=== PATIENT | female | born 1985 | race African-American/Black ===

== ENCOUNTER 2024-03-07 16:59 | Inpatient (IN) | payer OTHER ==
[~2024-03-07] VITALS: Ht 162.6 cm; Wt 68.5 kg
[2024-03-07 18:16] LABS: GLUCOMETER DEV NAME(LOC) ERT.5; GLUCOSE,POINT OF CARE 93 MG/DL (70-110)
[2024-03-07 18:44] LABS: BASOPHILS % (AUTO) 0.7 % (0.0-2.0); EOSINOPHILS % (AUTO) 2.8 % (1.0-6.0); HEMATOCRIT 21.9 % (36-46); LYMPHOCYTES # (AUTO) 2.6 K/uL (1.0-4.8); LYMPHOCYTES % (AUTO) 39.5 % (22.0-44.0); MEAN CORPUSCULAR HEMOGLOBIN 13.2 pg (26.0-34.0); MEAN CORPUSCULAR HGB CONC 25.2 G/dL (31.0-37.0); MEAN CORPUSCULAR VOLUME 52 fL (80-100); MONOCYTES # (AUTO) 0.6 K/uL (0.1-1.0); MONOCYTES % (AUTO) 9.2 % (2.0-9.0); NEUTROPHILS # (AUTO) 3.2 K/uL (1.8-7.7); NEUTROPHILS % (AUTO) 47.8 % (40.0-70.0); PLATELET COUNT (AUTO) 124 K/uL (150-450); RED BLOOD CELL COUNT(AUTO) 4.17 MIL/uL (4.00-5.20); RED CELL DISTRIBUTION WIDTH 23.3 % (11.5-14.5); WHITE BLOOD COUNT (AUTO) 6.6 K/uL (4.5-11.0)
[2024-03-07 18:49] LABS: HEMOGLOBIN 5.5 g/dL (12.0-16.0)
[2024-03-07 18:52] LABS: ANION GAP 11 mmol/L (8-16); CALCIUM, TOTAL 8.3 mg/dL (8.8-10.5); CARBON DIOXIDE 23 mmol/L (22-29); CHLORIDE 105 mmol/L (98-107); CREATININE 0.58 mg/dL (0.60-1.30); GLOMERULAR FILTR. RATE CALC > 60 mL/min (>60); GLUCOSE,RANDOM 83 mg/dL (70-110); POTASSIUM 3.9 mmol/L (3.5-5.1); SODIUM SERUM 139 mmol/L (136-145); UREA NITROGEN, BLOOD 8 mg/dL (7-18)
[2024-03-07] MEDS ORDERED: IOHEXOL 350 MG/ML 100 ML VIAL ONE (19:14)
[2024-03-07] MEDS ORDERED: SODIUM CHLORIDE 0.9% 100 ML ONE (19:14)
[2024-03-07 19:23] LABS: TROPONIN I-HIGH SENSITIVITY Less Than 4 ng/L (<51)
[2024-03-07 19:29] LABS: PATHOLOGY REVIEW, DIFF YES; RBC MORPHOLOGY COMMENT ABNORMAL RBC MORPH
[2024-03-07 20:19] LABS: APPEARANCE,URINE CLEAR (CLEAR); BILIRUBIN,URINE NEGATIVE (NEGATIVE); COLOR,URINE COLORLESS (YELLOW); GLUCOSE, URINE (UA) NEGATIVE (NEGATIVE); KETONES,URINE NEGATIVE (NEGATIVE); LEUKOCYTE ESTERASE ,URINE NEGATIVE (NEGATIVE); NITRATE,URINE NEGATIVE (NEGATIVE); OCCULT BLOOD,URINE NEGATIVE (NEGATIVE); PH,URINE 7.5 (5.0-8.0); PROTEIN,URINE TRACE mg/dL (NEGATIVE); SPECIFIC GRAVITIY, URINE 1.014 (1.003-1.030); UROBILINOGEN,URINE <=1.0 mg/dL (<=1.0)
[2024-03-07 20:30] VITALS: BP 124/85; PULSE 87; RESP 16; TEMP 98.5
[2024-03-07 20:45] VITALS: BP 122/68; PULSE 87; RESP 14; TEMP 98
[2024-03-07 21:00] VITALS: BP 115/76; PULSE 79; RESP 13; TEMP 98.6
[2024-03-07 21:15] VITALS: BP 119/70; PULSE 79; RESP 17; TEMP 98.3
[2024-03-07 21:45] VITALS: BP 115/77; PULSE 85; RESP 13; TEMP 98.3
[2024-03-07 22:15] VITALS: BP 119/78; PULSE 19; RESP 19; TEMP 98.3
[2024-03-07] MEDS: MetroNIDAZOLE 250 MG TABLET PO ONE (22:47)
[2024-03-07] MEDS: AZITHROMYCIN 500 MG TABLET PO ONE (22:47)
[2024-03-07] MEDS: CefTRIAXone SODIUM 1 GM/VIAL IM ONE (22:47)
[2024-03-07] MEDS: LIDOCAINE/PF 1% 2 ML VIAL IM ONE (22:49)
[2024-03-08] VITALS (11 sets, daily range): BP systolic 97–119; BP diastolic 47–73; PULSE 70–88; RESP 16–18; TEMP 97.4–99.3
[2024-03-08] MEDS: HEPARIN SODIUM,PORCINE 5,000 UNITS/ML VIAL SQ SCH
[2024-03-08] MEDS ORDERED: MAGNESIUM HYDROXIDE SUSPENSION 30 ML UDCUP PO PRN
[2024-03-08] MEDS ORDERED: MORPHINE SULFATE 2 MG/ML SYRINGE IVP PRN
[2024-03-08] MEDS ORDERED: IPRATROPIUM BROMIDE 0.5 MG/2.5 ML NEB SOLUTION NEB PRN
[2024-03-08] MEDS ORDERED: ALBUTEROL SULFATE 2.5 MG/0.5 ML NEB SOLUTION NEB PRN
[2024-03-08] MEDS ORDERED: BISACODYL 10 MG RECTAL RECTAL SUPPOSITORY PR PRN
[2024-03-08 01:34] LABS: % IRON SATURATION 2.4 % (22-44)
[2024-03-08] MEDS: PANTOPRAZOLE SODIUM 40 MG DR TABLET PO SCH (08:51)
[2024-03-08] MEDS: HYDROCODONE/ACETAMINOPHEN 5-325 MG TABLET PO PRN (08:51)
[2024-03-08 12:05] LABS: EOSINOPHILS % (AUTO) 2.1 % (1.0-6.0); HEMATOCRIT 24.6 % (36-46); LYMPHOCYTES # (AUTO) 2.4 K/uL (1.0-4.8); LYMPHOCYTES % (AUTO) 35.5 % (22.0-44.0); MEAN CORPUSCULAR HEMOGLOBIN 16.3 pg (26.0-34.0); MEAN CORPUSCULAR HGB CONC 28.4 G/dL (31.0-37.0); MEAN CORPUSCULAR VOLUME 57 fL (80-100); MONOCYTES # (AUTO) 0.5 K/uL (0.1-1.0); MONOCYTES % (AUTO) 7.3 % (2.0-9.0); NEUTROPHILS # (AUTO) 3.6 K/uL (1.8-7.7); NEUTROPHILS % (AUTO) 54.1 % (40.0-70.0); PLATELET COUNT (AUTO) 159 K/uL (150-450); RED CELL DISTRIBUTION WIDTH 29.1 % (11.5-14.5); WHITE BLOOD COUNT (AUTO) 6.6 K/uL (4.5-11.0)
[2024-03-08] MEDS ORDERED: ONDANSETRON HCL 4 MG/2 ML VIAL IVP PRN ×2 (14:45)
[2024-03-08] MEDS ORDERED: SODIUM CHLORIDE 0.9% 1,000 ML ONE (14:58)
[2024-03-08] MEDS ORDERED: SODIUM CHLORIDE 0.9% 500 ML IV ONE (18:22)
[2024-03-08] MEDS: SOD FERRIC GLUC COMPLX/SUCROSE 125 MG in SODIUM CHLORIDE 0.9% 100 ML IV SCH (18:50)
[2024-03-08 20:02] LABS: BASOPHILS % (AUTO) 0.3 % (0.0-2.0); EOSINOPHILS % (AUTO) 2.1 % (1.0-6.0); HEMATOCRIT 26.6 % (36-46); HEMOGLOBIN 7.9 g/dL (12.0-16.0); LYMPHOCYTES # (AUTO) 2.7 K/uL (1.0-4.8); LYMPHOCYTES % (AUTO) 32.8 % (22.0-44.0); MEAN CORPUSCULAR HEMOGLOBIN 17.9 pg (26.0-34.0); MEAN CORPUSCULAR HGB CONC 29.8 G/dL (31.0-37.0); MEAN CORPUSCULAR VOLUME 60 fL (80-100); MONOCYTES # (AUTO) 0.6 K/uL (0.1-1.0); NEUTROPHILS # (AUTO) 4.8 K/uL (1.8-7.7); NEUTROPHILS % (AUTO) 57.8 % (40.0-70.0); PLATELET COUNT (AUTO) 127 K/uL (150-450); RED BLOOD CELL COUNT(AUTO) 4.44 MIL/uL (4.00-5.20); RED CELL DISTRIBUTION WIDTH 32.7 % (11.5-14.5); WHITE BLOOD COUNT (AUTO) 8.3 K/uL (4.5-11.0)
[2024-03-08 20:43] LABS: RBC MORPHOLOGY COMMENT ABNORMAL RBC MORPH
[2024-03-08] MEDS: ZOLPIDEM TARTRATE 5 MG TABLET PO PRN (21:28)
[2024-03-09 05:12] VITALS: BP 112/51; PULSE 76; RESP 18; TEMP 99
[2024-03-09 08:18] VITALS: BP 100/63; PULSE 70; RESP 20; TEMP 98.9
[2024-03-09] MEDS: POLYETHYLENE GLYCOL 3350 17 GM PACKET PO SCH (12:45)
[2024-03-09] MEDS: BISACODYL 10 MG RECTAL RECTAL SUPPOSITORY PR ONE (13:54)
[2024-03-09] MEDS ORDERED: PANT-31 PO (13:58)
[2024-03-09] MEDS ORDERED: POLY17PO62 PO (14:00)
[2024-03-09] MEDS ORDERED: BISA10SU11 PR (14:11)
[2024-03-09] MEDS ORDERED: SENN-338 PO (14:14)
[2024-03-09] MEDS ORDERED: FERR325T27 PO (14:19)
[2024-03-09] MEDS ORDERED: POLY17PO47 PO (14:20)
[2024-03-09 19:37] VITALS: BP 101/62; PULSE 78; RESP 18; TEMP 97.8
[2024-03-10] MEDS: ACETAMINOPHEN 325 MG TABLET PO PRN (01:46)
[2024-03-10 03:53] VITALS: BP 97/62; PULSE 67; RESP 18; TEMP 98.1
[2024-03-10 08:34] LABS: BASOPHILS % (AUTO) 0.5 % (0.0-2.0); HEMOGLOBIN 8.6 g/dL (12.0-16.0); LYMPHOCYTES # (AUTO) 2.6 K/uL (1.0-4.8); LYMPHOCYTES % (AUTO) 28.6 % (22.0-44.0); MEAN CORPUSCULAR HEMOGLOBIN 18.1 pg (26.0-34.0); MEAN CORPUSCULAR HGB CONC 29.6 G/dL (31.0-37.0); MEAN CORPUSCULAR VOLUME 61 fL (80-100); MONOCYTES # (AUTO) 0.6 K/uL (0.1-1.0); MONOCYTES % (AUTO) 6.8 % (2.0-9.0); NEUTROPHILS # (AUTO) 5.5 K/uL (1.8-7.7); NEUTROPHILS % (AUTO) 61.1 % (40.0-70.0); PLATELET COUNT (AUTO) 164 K/uL (150-450); RED BLOOD CELL COUNT(AUTO) 4.73 MIL/uL (4.00-5.20); RED CELL DISTRIBUTION WIDTH 33.8 % (11.5-14.5)
[2024-03-10 08:50] LABS: ALANINE AMINOTRANSFERASE 8 U/L (12-78); ALBUMIN 3.1 g/dL (3.4-5.0); ALKALINE PHOSPHATASE 55 U/L (46-116); ANION GAP 10 mmol/L (8-16); ASPARTATE AMINOTRANSFERASE 12 U/L (15-37); BILIRUBIN,TOTAL 0.5 mg/dL (0.1-1.0); CALCIUM, TOTAL 8.4 mg/dL (8.8-10.5); CARBON DIOXIDE 23 mmol/L (22-29); CHLORIDE 101 mmol/L (98-107); CREATININE 0.66 mg/dL (0.60-1.30); GLOMERULAR FILTR. RATE CALC > 60 mL/min (>60); GLUCOSE,RANDOM 74 mg/dL (70-110); SODIUM SERUM 134 mmol/L (136-145); TOTAL PROTEIN, SERUM 7.4 g/dL (6.4-8.2); UREA NITROGEN, BLOOD 9 mg/dL (7-18)
[2024-03-10 08:56] VITALS: BP 100/70; PULSE 76; RESP 18; TEMP 98.8
[2024-03-10 09:07] LABS: RBC MORPHOLOGY COMMENT ABNORMAL RBC MORPH
[2024-03-10] MEDS: BACITRACIN 28 GM OINTMENT TP SCH (14:35)
[2024-03-10] MEDS: DOXYCYCLINE HYCLATE 100 MG TABLET PO ONE (14:35)
[2024-03-10] MEDS ORDERED: DOXYCYCLINE HYCLATE 100 MG TABLET PO SCH (21:00)
[2024-03-11 02:06] LABS: HIV 1-2 SCREEN 4TH GEN W/RFLX Non Reactive (Non Reactive)
== END 2024-03-10 16:50 | DRG 812 ==
LOC: EMS 16:59 → EDH 03-08 00:18 → 6N 03-08 05:07
PROVIDERS: ADMIT Hospitalist; ATTEND Hospitalist
PROC: 30233N1 Transfusion of Nonautologous Red Blood Cells into Peripheral Vein, Percutaneous Approach (ICD-10-PCS; principal; 2024-03-07)
DX: D50.9 Iron deficiency anemia, unspecified (principal); K92.1 Melena; N92.0 Excessive and frequent menstruation with regular cycle; N83.12 Corpus luteum cyst of left ovary; K59.09 Other constipation; E11.9 Type 2 diabetes mellitus without complications; F41.9 Anxiety disorder, unspecified; F32.A Depression, unspecified; K59.00 Constipation, unspecified; Z91.410 Personal history of adult physical and sexual abuse
CPT/HCPCS: 74177; 80048; 80053; 81003; 82271; 82962; 83540; 83550; 84484; 84703; 85025; 86592; 86850; 86900; 86901; 86923; 87389; 87491; 87591; 93005; 99285; J0696; J1644; J2916; J3490; J7030; J7040; J7050; P9016

== ENCOUNTER 2024-04-11 13:12 | Emergency (ER) | payer OTHER ==
[~2024-04-11] VITALS: Ht 162.6 cm; Wt 65.5 kg
[~2024-04-11 13:12] MED LIST: BISA10SU11 PR; FERR325T27 PO; PANT-31 PO; POLY17PO47 PO; SENN-395 PO
[2024-04-11] MEDS ORDERED: ACET-2247 PO (13:45)
[2024-04-11 13:48] VITALS: BP 149/89; PULSE 78; RESP 18; TEMP 97.7; O2SAT 98
[2024-04-11 14:04] LABS: ANION GAP 6 mmol/L (8-16); CALCIUM, TOTAL 8.7 mg/dL (8.8-10.5); CARBON DIOXIDE 27 mmol/L (22-29); CHLORIDE 103 mmol/L (98-107); CREATININE 0.65 mg/dL (0.60-1.30); GLOMERULAR FILTR. RATE CALC > 60 mL/min (>60); GLUCOSE,RANDOM 87 mg/dL (70-110); POTASSIUM 4.2 mmol/L (3.5-5.1); SODIUM SERUM 136 mmol/L (136-145); UREA NITROGEN, BLOOD 7 mg/dL (7-18)
[2024-04-11 14:07] LABS: BASOPHILS % (AUTO) 0.5 % (0.0-2.0); EOSINOPHILS % (AUTO) 3.5 % (1.0-6.0); HEMATOCRIT 34.4 % (36-46); HEMOGLOBIN 10.3 g/dL (12.0-16.0); LYMPHOCYTES # (AUTO) 2.5 K/uL (1.0-4.8); LYMPHOCYTES % (AUTO) 31.7 % (22.0-44.0); MEAN CORPUSCULAR HEMOGLOBIN 20.4 pg (26.0-34.0); MEAN CORPUSCULAR HGB CONC 29.9 G/dL (31.0-37.0); MEAN CORPUSCULAR VOLUME 68 fL (80-100); MONOCYTES # (AUTO) 0.5 K/uL (0.1-1.0); MONOCYTES % (AUTO) 6.3 % (2.0-9.0); NEUTROPHILS # (AUTO) 4.6 K/uL (1.8-7.7); PLATELET COUNT (AUTO) 244 K/uL (150-450); RED BLOOD CELL COUNT(AUTO) 5.05 MIL/uL (4.00-5.20); RED CELL DISTRIBUTION WIDTH 30.4 % (11.5-14.5)
[2024-04-11 14:10] LABS: PROTHROMBIN TIME 10.3 SEC (9.4-11.6)
[2024-04-11 14:13] LABS: TROPONIN I-HIGH SENSITIVITY Less Than 4 ng/L (<51)
[2024-04-11 14:28] LABS: ALANINE AMINOTRANSFERASE 16 U/L (12-78); ALBUMIN 3.6 g/dL (3.4-5.0); ALKALINE PHOSPHATASE 76 U/L (46-116); ASPARTATE AMINOTRANSFERASE 14 U/L (15-37); BILIRUBIN,TOTAL 0.3 mg/dL (0.1-1.0); CREATINE KINASE, TOTAL ONLY 85 U/L (26-192); TOTAL PROTEIN, SERUM 7.7 g/dL (6.4-8.2)
[2024-04-11 14:31] LABS: B-TYPE NATRIURETIC PEPTIDE 6 pg/mL (0-100)
[2024-04-11 15:12] LABS: RBC MORPHOLOGY COMMENT ABNORMAL RBC MORPH
[2024-04-11 15:22] LABS: APPEARANCE,URINE CLEAR (CLEAR); BILIRUBIN,URINE NEGATIVE (NEGATIVE); COLOR,URINE COLORLESS (YELLOW); GLUCOSE, URINE (UA) NEGATIVE (NEGATIVE); KETONES,URINE NEGATIVE (NEGATIVE); LEUKOCYTE ESTERASE ,URINE NEGATIVE (NEGATIVE); NITRATE,URINE NEGATIVE (NEGATIVE); OCCULT BLOOD,URINE NEGATIVE (NEGATIVE); PROTEIN,URINE NEGATIVE (NEGATIVE); SPECIFIC GRAVITIY, URINE 1.003 (1.003-1.030); UROBILINOGEN,URINE <=1.0 mg/dL (<=1.0)
== END 2024-04-11 15:57 | disposition home or self-care (01) ==
LOC: EMS 13:12
DX: D64.9 Anemia, unspecified (principal); R53.1 Weakness
CPT/HCPCS: 71045; 80053; 81003; 82550; 83880; 84484; 85025; 85610; 85730; 93005; 99285; 36415-L1; 36415-TC